=== PATIENT | male | born 1965 | race Caucasian/White ===

== ENCOUNTER 2019-10-14 06:11 | Day surgery (SDC) | payer OTHER ==
[2019-10-14] MEDS ORDERED: Acetaminophen 500 MG Tab PO ONE (06:30)
[2019-10-14] MEDS ORDERED: Bupivacaine 0.5% 50 ML MDV ONE (06:38)
[2019-10-14] MEDS ORDERED: Lidocaine 1% with EPINEPHrine 1:100,000 50 ML MDV ONE (06:38)
[2019-10-14] MEDS ORDERED: Dextrose 5%-Lactated Ringers 1,000 ML IV SCH (06:45)
[2019-10-14] MEDS ORDERED: fentaNYL 100 MCG/2 ML SDV ONE (07:11)
[2019-10-14] MEDS ORDERED: Propofol 200 MG/20 ML SDV ONE ×2 (07:11→08:25)
[2019-10-14] MEDS ORDERED: Midazolam 1 MG/ML 2 ML SDV ONE ×2 (07:11→08:25)
[2019-10-14] MEDS ORDERED: ceFAZolin 2 GM in Premix Bag 1 BAG IV ONE (07:40)
[2019-10-14] MEDS ORDERED: Ketorolac 60 MG/2 ML SDV ONE (08:42)
--- NOTE | 2019-10-23 16:35 | OR ---
DATE OF PROCEDURE: 10/14/2019 SURGEON: Pranay Last MD PREOPERATIVE DIAGNOSIS: Left inguinal hernia. POSTOPERATIVE DIAGNOSES: 1. Incarcerated left inguinal hernia. 2. Left ilioinguinal nerve and genital branch of genitofemoral nerves at risk for scar entrapment. OPERATIVE PROCEDURES: Left inguinal exploration with, 1. Repair of incarcerated left inguinal hernia with mesh (48178). 2. Excision of portion of left ilioinguinal nerve (67570). 3. Excision of portion of genital branch of genitofemoral nerve (53292). ANESTHESIA: Local plus IV sedation. REFERENCE ARCHIVIST: Eda Deal PA-C INDICATIONS FOR PROCEDURE: This is a 54-year-old presenting with increasingly symptomatic left inguinal hernia. This does not appear to be entirely reducible. The plan is to proceed with a left inguinal exploration with repair of the hernia with mesh plug technique. The potential risks of the procedure including bleeding, infection, problems with mesh becoming infected, hernia recurring, or possible chronic pain following the procedure were gone over and that we will often divide one or two nerves in the field where the flat portion of the mesh plug system would lay so as to avoid scar entrapment of those nerves and associated chronic pain was gone over, and the patient wishes to proceed. DETAILS OF PROCEDURE: The patient was taken to the operating room and placed in a supine position. IV sedation was administered. After which, the abdomen and groin areas were prepped and draped. The left inguinal area was anesthetized with 1% lidocaine mixed with Marcaine. Then, a standard left inguinal incision was made and carried down through the skin and subcutaneous tissue and through the external oblique aponeurosis, subaponeurotic flaps were raised superiorly and inferiorly. Cord structures were then mobilized upward. The patient was noted to predominantly have an indirect hernia. After dissection of the hernia sac, it was noted to contain some bladder and bladder flap within it, which were dissected free and returned back to the peritoneal cavity. The patient was also noted to have a non-incarcerated shallow direct hernia medially over the floor. Initially, the transversalis fascia overlying this was incised and into the direct hernia site, a large mesh plug was placed. This was affixed to the Parmjit ligament with titanium tacking screws, and the underside of the conjoint tendon medially, superiorly and laterally, with some horizontal mattress sutures of 2-0 Vicryl stitch. Medium mesh plug was then placed into the indirect defect and affixed circumferentially with horizontal mattress sutures as well. This included some sutures to the underside of the shelving portion of the inguinal ligament to fix it inferiorly. At this point, the area was inspected. The genital branch of genitofemoral nerve was easily exposed, would be up against the flat portion of mesh plug system. This was therefore excised down at the level of the internal ring and the ilioinguinal nerve likewise was in the field where the mesh would be laid, was divided and excised at a point in the far- lateral aspect of the incision. The flat portion of mesh plug system was then placed across the inguinal floor, fixed to pubic tubercle with a titanium tacking screw and fixed lateral to the cord structures with 2-0 Vicryl stitch. The external oblique aponeurosis was then approximated over the mesh and cord structures with 3-0 Vicryl stitch as was Charu's fascia and skin closed with 4-0 Vicryl subcuticular stitch. Dressing was applied. The patient was taken to the recovery room in satisfactory condition. Physician horticultural nursery assistant, Eda Deal, played an essential role in assisting in this case, helping to position the patient, retract structures as needed, as well as suturing and cutting sutures when indicated. Her presence improved patient safety and decreased the operative time. Pranay Last MD /[id number]
== END 2019-10-14 11:00 | disposition home or self-care (01) ==
LOC: JP.SDS 06:11
PROVIDERS: ATTEND Surgery
DX: K40.30 Unilateral inguinal hernia, with obstruction, without gangrene, not specified as recurrent (principal); G57.82 Other specified mononeuropathies of left lower limb
CPT/HCPCS: 49507; 64784; 88302; A9270; C1713; C1781; J0690; J1885; J2250; J2704; J3010; J3490; J7121